=== PATIENT | female | born 1960 | race Caucasian/White ===

== ENCOUNTER 2018-06-21 14:24 | Inpatient (IN) | payer MEDICAID ==
[2018-06-21 15:05] LABS: BASO # 0.03 K/mm3 (0.0-2.0); BASO % 0.3 % (0.0-3.0); EOS # 0.1 (0.0-0.7); GRAN # 6.11 (1.4-6.5); GRAN % 62.1 % (50.0-68.0); HEMOGLOBIN 13.6 g/dL (12.0-16.0); LYMPH % 30.7 % (22.0-35.0); MEAN CELL VOLUME 86.8 fl (80.0-105.0); MEAN CORPUSCULAR HEMOGLOBIN 29.4 pg (25.0-35.0); MEAN CORPUSCULAR HGB CONC 33.8 g/dl (31.0-37.0); MEAN PLATELET VOLUME 11.5 fl (7.0-11.0); MONO # 0.6 (0.1-0.6); MONO % 5.9 % (1.0-6.0); RBC 4.63 10^6/uL (3.5-6.1); RED CELL DISTRIBUTION WIDTH 13.3 % (11.5-14.5); WHITE BLOOD COUNT 9.8 10^3/ul (4.5-11.0)
[2018-06-21 15:11] LABS: INR 1.06; PARTIAL THROMBOPLASTIN TIME 30.4 Seconds (25.1-36.5); PROTHROMBIN TIME 12.1 SECONDS (9.4-12.5)
[2018-06-21 15:16] LABS: ALB/GLOB RATIO 1.3 (1.1-1.8); ALBUMIN 4.8 g/dL (3.0-4.8); ALT/SGPT 24 U/L (7-56); AST/SGOT 24 U/L (14-36); BLOOD UREA NITROGEN 17 mg/dL (7-21); CALCIUM 9.8 mg/dL (8.4-10.5); GFR NON-AFRICAN AMERICAN > 60
[2018-06-21 15:27] LABS: B-TYPE NATRIURETIC PEPTIDE 98.8 pg/mL (0-450); TROPONIN I < 0.01 ng/mL
[2018-06-21 15:33] LABS: T4 7.5 ug/dL (5.5-11.0)
[2018-06-21 15:41] LABS: URINE BILIRUBIN NEGATIVE (NEGATIVE); URINE BLOOD NEGATIVE (NEGATIVE); URINE GLUCOSE (UA) NEGATIVE (NEGATIVE); URINE LEUKOCYTE ESTERASE SMALL Leu/uL (NEGATIVE); URINE PROTEIN 30 mg/dL (<30 mg/dL); URINE UROBILINOGEN 0.2 E.U./dL (<1 E.U./dL)
[2018-06-21 15:43] LABS: URINE APPEARANCE CLEAR (CLEAR); URINE COLOR YELLOW (YELLOW)
[2018-06-21 16:18] LABS: URINE AMORPHOUS SEDIMENT FEW; URINE BACTERIA MANY (NEG); URINE RBC 0 - 2 /hpf (0-2)
--- NOTE | 2018-06-21 16:52 | RAD ---
Date of service: 06/21/2018 HISTORY: sob COMPARISON: No prior. FINDINGS: LUNGS: No active pulmonary disease. PLEURA: No significant pleural effusion identified, no pneumothorax apparent. CARDIOVASCULAR: Normal. OSSEOUS STRUCTURES: No significant abnormalities. VISUALIZED UPPER ABDOMEN: Normal. OTHER FINDINGS: None. IMPRESSION: No active disease.
--- NOTE | 2018-06-21 17:48 | ED PDOC ---
Arrival/HPI - General Chief Complaint: High Blood Pressure Time Seen by Provider: 06/21/18 14:31 Historian: Patient, Family, Physical Therapist Clinic Director - History of Present Illness Narrative History of Present Illness (Text): 06/21/18 17:43 Patient is a 58 yo female, denies any known past medical history, presents to the Emergency Department with history of shortness of breath for "2-3 months". Patient states that she has noticed feeling short of breath intermittently, with exertion, for several months. She denies any pain or discomfort. She denies any leg pain or swelling. Denies any lightheadedness or dizziness. Denies any new medication. Son, who translates for patient, states that the patient was found to have a high blood pressure "200" as per son yesterday and "a low pulse rate" he states was in "40s". Patient currently denies symptoms while on stretcher. Past Medical History - Psychiatric Hx Substance Use: No - Surgical History Other/Comment: Fibroid removal Family/Social History Family/Social History: Unknown Family HX Smoking Status: Never Smoked Hx Alcohol Use: No Hx Substance Use: No Allergies/Home Meds Allergies/Adverse Reactions: Allergies No Known Allergies Allergy (Verified 06/21/18 14:37) Home Medications: Home Meds Medication Instructions Recorded Confirmed No Known Home Med 06/21/18 06/21/18 Review of Systems - Review of Systems Systems not reviewed;Unavailable: Language Barrier (son translates with patient's permission) Constitutional: Fatigue. absent: Fevers Eyes: absent: Vision Changes ENT: absent: Hearing Changes Respiratory: SOB. absent: Cough, Sputum, Wheezing Cardiovascular: HERRERA. absent: Palpitations, Edema, Calf Pain, Orthopnea, Syncope Gastrointestinal: absent: Abdominal Pain, Stool Changes Musculoskeletal: absent: Back Pain Skin: absent: Rash Neurological: absent: Headache, Dizziness, Focal Weakness, Speech Changes Endocrine: absent: Polyuria Hemo/Lymphatic: absent: Easy Bleeding Psychiatric: absent: Depression Physical Exam - Physical Exam Narrative Physical Exam (Text): 06/21/18 17:49 Head: Atraumatic. Normocephalic. Eyes: PERRL. EOMI. Conjunctivae are not pale. ENT: Mucous membranes are moist and intact. Oropharynx is clear and symmetric. No stridor. Neck: Supple. Full ROM. No JVD. No lymphadenopathy. No thyromegaly. Cardiovascular: Bradycardic. Systolic murmur. Distal pulses intact. Pulmonary/Chest: No evidence of respiratory distress. Clear to auscultation bilaterally. No wheezing. Abdominal: Soft and non-distended. There is no tenderness. No rebound, guarding, or rigidity. No organomegaly. Good bowel sounds. Back: No CVA tenderness. Extremities: No edema. No cyanosis. No clubbing. Full range of motion in all extremities. No calf tenderness. Skin: Skin is warm and dry. No petechiae. No purpura. Neurological: Alert, awake, and oriented. Motor and sensory exam intact. Psychiatric: Good eye contact. Normal interaction, affect, and behavior. Vital Signs Reviewed: Yes Vital Signs Temp Pulse Resp BP Pulse Ox 06/21/18 15:53 98.2 F 37 L 17 130/64 100 06/21/18 14:35 98.2 F 41 L 20 194/70 H 99 Temperature: Afebrile Blood Pressure: Hypertensive Pulse: Bradycardic Respiratory Rate: Normal Appearance: Positive for: Well-Appearing, Non-Toxic, Comfortable Pain Distress: None Mental Status: Positive for: Alert and Oriented X 3 Finger Stick Blood Glucose: 89 Medical Decision Making ED Course and Treatment: 06/21/18 17:54 Patient's history supplemented by son who is at bedside. Patient denies any acute worsening of any symptoms, but states she has had shortness of breath for "months". She denies any pain or discomfort. She denies any medications. On exam she is significantly bradycardic but DENIES SYMPTOMS. Blood pressure is elevated. Patient denies prior known history of hypertension. EKG obtained reveals complete heart block with anoop escape rhythm. Oncall cardiology was consulted. Dr. Luna covering. EKG was reviewed with machine assembler as well as exam. Patient continues to have no pain or discomfort. No dizziness. Lungs clears. Oxygen saturations 99%. Patient's case reviewed with oncall physician Dr. Medina Oropeza, who accepts patient to his service. Patient will be admitted to ICU for complete heart block, bradycardia. With serial exams she remains asymptomatic in the Emergency Department. - Lab Interpretations Lab Results: 06/21/18 14:47 06/21/18 14:47 Lab Results 06/21/18 15:25: POC Glucose (mg/dL) 89 06/21/18 14:47: Thyroxine (T4) 7.5, TSH 3rd Generation 3.69 06/21/18 14:47: Urine Color Yellow, Urine Appearance Clear, Urine pH 6.0, Ur Specific [place] 1.025, Urine Protein 30 H, Urine Glucose (UA) Negative, Urine Ketones Negative, Urine Blood Negative, Urine Nitrate Negative, Urine Bilirubin Negative, Urine Urobilinogen 0.2, Ur Leukocyte Esterase Small H, Urine RBC 0 - 2, Urine WBC 5 - 10, Ur Epithelial Cells 6 - 8, Amorphous Sediment Few, Urine Bacteria Many, Urine Other [place] 06/21/18 14:47: Sodium 142, Potassium 3.8, Chloride 103, Carbon Dioxide 29, Anion Gap 13, BUN 17, Creatinine 0.8, Est GFR ( Amer) > 60, Est GFR (Non- Af Amer) > 60, Random Glucose 99, Calcium 9.8, Magnesium 2.1, Total Bilirubin 0.6, AST 24, ALT 24, Alkaline Phosphatase 40, Lactate Dehydrogenase 500, Total Creatine Kinase 73, Troponin I < 0.01, NT-Pro-B Natriuret Pep 98.8, Total Pro tein 8.5 H, Albumin 4.8, Globulin 3.7, Albumin/Globulin Ratio 1.3 06/21/18 14:47: PT 12.1, INR 1.06, APTT 30.4 06/21/18 14:47: WBC 9.8, RBC 4.63, Hgb 13.6, Hct 40.2, MCV 86.8, MCH 29.4, MCHC 33.8, RDW 13.3, Plt Count 253, MPV 11.5 H, Gran % 62.1, Lymph % (Auto) 30.7, [place] % (Auto) 5.9, Eos % (Auto) 1.0 L, Baso % (Auto) 0.3, Gran # 6.11, Lymph # (Auto) 3.0, [place] # (Auto) 0.6, Eos # (Auto) 0.1, Baso # (Auto) 0.03 - RAD Interpretation Radiology Orders: 06/21/18 14:54 CHEST PORTABLE [RAD] Stat Cable Engineer Outside Plant: Radiologist - EKG Interpretation Interpreted by ED Physician: Yes Type: 12 lead EKG Comparison: No previous EKG avail. Disposition/Present on Arrival - Present on Arrival Any Indicators Present on Arrival: No History of DVT/PE: No History of Uncontrolled Diabetes: No Urinary Catheter: No History of Decub. Ulcer: No History Surgical Site Infection Following: None - Disposition Have Diagnosis and Disposition been Completed?: Yes Diagnosis: Complete heart block, Bradycardia Disposition: HOSPITALIZED Disposition Time: 16:00 Patient Plan: Admission, ICU Condition: CRITICAL
--- NOTE | 2018-06-22 03:10 | CON ---
DATE OF CONSULTATION: 06/21/2018 REQUESTING PHYSICIAN: Reymundo Oropeza DO CHIEF COMPLAINT: The patient presents with being tired and episodes of shortness of breath for the last 3 months. HISTORY OF PRESENT ILLNESS: The patient is a 58-year-old female that states that she for the last 3 months has felt intermittent shortness of breath especially on exertion and feeling tired. The patient has no chest pain, no fever, chills, nausea or vomiting, no abdominal pain, no diarrhea, no cough or congestion, no wheezing, no headaches, no syncopal episodes, no dizziness. The patient's son states that he took his mother's blood pressure this morning and it was extremely high, systolic being about 200 and she had a slow heart rate, so he decided to bring her to the emergency room. It is noted that the patient has a complete heart block with regular rhythm, but a rate of about 37-40. At this time, her blood pressure is stable with a systolic of about 124. PAST MEDICAL HISTORY: The patient has had fibroids removed in the past. Other than that, no known past medical history, FAMILY HISTORY: Noncontributory. SOCIAL HISTORY: No history of smoking or EtOH abuse. No drug abuse. CURRENT MEDICATIONS: Can be evaluated as per the nurse's intake form. ALLERGIES: NO KNOWN ALLERGIES. REVIEW OF SYSTEMS: CONSTITUTIONAL: All negative. HEENT: All negative. RESPIRATORY: Does have episodes of shortness of breath with exertion. CARDIOVASCULAR: Dyspnea on exertion. No palpitations. No chest pain. GASTROINTESTINAL: All negative. MUSCULOSKELETAL: All negative. : All negative. NEUROPSYCHIATRIC: Negative. ENDOCRINE: All negative. HEMATOLOGIC: All negative. IMMUNOLOGIC: All negative. INTEGRITY: All negative. PHYSICAL EXAMINATION: Her temperature is 98.2, her pulse is 37, respirations are 17, and BP is 130/64, O2 saturation is 100% on room air. Head is atraumatic, normocephalic. Eyes reactive to light. Ear, nose and throat seem to be within normal limits. Her neck is supple. No JVD. No thyroid enlargement or lymph nodes. Heart has regular rate and rhythm. Normal S1, S2. Lungs reveal good breath sounds bilaterally. Abdomen is soft, nontender. Normal bowel sounds. No organomegaly noted. Genitalia and rectal deferred. Musculoskeletal, no joint deformities. Extremities reveal no significant edema. Neurologically, she seemed to be grossly intact. LABORATORIES: As far as her laboratories are concerned, her white count is 9.8, hemoglobin is 13.6, hematocrit 40.2 with platelets of 253,000. Her sodium is 142, potassium 3.8, chloride of 103 with CO2 of 29, BUN of 17, creatinine of 0.8 and a glucose of 99. Chest x-ray reveals no infiltrates. IMPRESSION: The patient has a complete heart block and episodes of shortness of breath with exertion and feeling tired. She did present to the emergency room with elevated blood pressure, but it stabilized on its own and the patient does have the bradycardia. PLAN: We will admit the patient to the intensive care unit for close monitoring. Cardiology, Dr. Luna, has been consulted and he has reviewed the EKG as per the ER and states that at this time she does not need a temporary pacemaker. The patient will be monitored closely and we will continue to treat aggressively along with the other consultants and the primary care doctor. Raoul Mosley MD
--- NOTE | 2018-06-22 05:05 | HP ---
HISTORY OF PRESENT ILLNESS: I was called down to the emergency room to see this nice young female. She is a 58-year-old female who presents to the emergency room with history of shortness of breath for about 2-3 months. She is noticing shortness of breath intermittently with exertion for several months. No pain or chest pain or swelling of the legs. No lightheadedness, no dizziness, no falls, no syncope. The son is with her and translates for all of us; she was speaking Japanese to me and understood what I had to say. He was there to make sure everything was okay. She did have a high blood pressure about 200 and that bothers him, also a low pulse rate in the 40s but no symptoms or anything. PAST MEDICAL HISTORY: She has no real medical history. She had a fibroid removed way back when. FAMILY HISTORY: Unknown. SOCIAL HISTORY: No smoking, no drinking, no drugs. ALLERGIES: NO ALLERGIES TO ANY MEDICATIONS. MEDICATIONS: She does not take any medications. REVIEW OF SYSTEMS: No vision or hearing issues. No sore throat. She is pleasant, calm in bed, there was shortness of breath. No coughing, sputum, or wheezing. There was dyspnea on exertion. No palpitations, chest pain, orthopnea, or syncope. No nausea, vomiting, constipation, diarrhea, abdominal pain. No back pain. No skin rashes or ulcers. No headache, dizziness, focal weakness, speech changes. No problems urinating. No easy bleeding. Not depressed or anxious. PHYSICAL EXAMINATION VITAL SIGNS: She has 98.2 temperature, 37 pulse, 17 respiratory rate, 130/64 blood pressure and 100% O2 sat. The blood pressure when she came in was 194/70. HEENT: The head is atraumatic and normocephalic. Extraocular muscles are intact. Pupils reactive to light and accommodation. Throat is moist. NECK: Supple. Full range of motion of the neck. No JVD, no lymphadenopathy. Palpable thyroid appreciated. CARDIOPULMONARY: Heart is bradycardic, systolic murmur. LUNGS: Decreased breath sounds bilaterally but clear to auscultation. No wheezes, no rhonchi, no rales. ABDOMEN: Soft and nontender with positive bowel sounds. No guarding, no rebound, no CVA tenderness. EXTREMITIES: Have no edema, full range of motion. SKIN: Warm and dry. No apparent rashes or ulcers. NEUROLOGIC: She is alert and oriented x3, calm, is looking at me, good eye contact. No anxiety or depression. Thyroid midline and palpable appreciable lymphadenopathy. LABORATORY DATA: She had a bunch of tests done. Chest x-ray was clear. She has a urine which was positive for many bacteria. She has a urinary tract infection. Sodium 142, potassium is 3.8, BUN 70, creatinine 0.8, chloride and sugar is 89. Calcium is 9.8, total bili is 0.6, magnesium 2.1, AST is 24, ALT is 24, alk phos is 40. Lactate dehydrogenase is 500, total creatine kinase is 73. Troponin I is less than 0.01. BNP of 98.8, total protein is 8.5, albumin is 4.8, globulin is 3.7. TSH is 3.69. INR is 1.06. White count is 9.8, hemoglobin 13.6, hematocrit 40.2, platelets of 253. Awaiting further cultures to come back on the urine. I will put her on Rocephin 1 g IV q. 24. till her cultures come back; she will have a diet. She will have a consult with Cardiology, Dr. Luna for the heart block. She will be on telemetry in the Intensive Care Unit, to watch her pulse right now, it is 34 on the monitor shortness of breath. Reymundo Oropeza DO MTDD
[2018-06-22 06:06] LABS: HEMOGLOBIN 12.2 g/dL (12.0-16.0); RBC 4.31 10^6/uL (3.5-6.1); WHITE BLOOD COUNT 8.5 10^3/ul (4.5-11.0)
[2018-06-22 06:07] LABS: MEAN CELL VOLUME 87.9 fl (80.0-105.0); MEAN CORPUSCULAR HEMOGLOBIN 28.3 pg (25.0-35.0); MEAN CORPUSCULAR HGB CONC 32.2 g/dl (31.0-37.0); MEAN PLATELET VOLUME 11.9 fl (7.0-11.0); RED CELL DISTRIBUTION WIDTH 13.3 % (11.5-14.5)
[2018-06-22 06:20] LABS: ALB/GLOB RATIO 1.2 (1.1-1.8); ALT/SGPT 23 U/L (7-56); AST/SGOT 20 U/L (14-36); BLOOD UREA NITROGEN 18 mg/dL (7-21); CALCIUM 9.2 mg/dL (8.4-10.5); GFR NON-AFRICAN AMERICAN > 60
--- NOTE | 2018-06-22 08:13 | CP.CCUPN ---
<Jeison Dejesus - Last Filed: 06/22/18 09:52> CCU Subjective - Physician Review Subjective (Free Text): Jeison Dejesus DO, PGY-1 ICU Progress Note for Dr. Alicea Patient was seen and examined at bedside this AM. She states that she feels fine and is no longer short of breath. She states that she only gets short of breath with exertion. She denies dizziness, [place], changes in vision, or nausea/vomiting. CCU Objective - Vital Signs / Intake & Output Vital Signs (Last 4 hours): Vital Signs Pulse 06/22/18 06:00 32 L Intake and Output (Last 8hrs): Intake & Output 06/21/18 06/22/18 06/22/18 22:59 06:59 14:59 Output Total 300 Balance -300 Weight 158 lb Output: Urine 300 Urine, Voided 300 - Physical Exam Head: Positive for: Atraumatic, Normocephalic Pupils: Positive for: PERRL Extroacular Muscles: Positive for: EOMI Conjunctiva: Positive for: Normal Mouth: Positive for: Moist Mucous Membranes Neck: Positive for: Normal Range of Motion. Negative for: JVD Respiratory/Chest: Positive for: Clear to Auscultation. Negative for: Accessory Muscle Use, Wheezes, Rales, Rhonchi Cardiovascular: Positive for: Normal S1, S2, Other (bradycardic at rate of 32). Negative for: Murmurs, Rub, Gallop Abdomen: Negative for: Tenderness, Distention, Guarding Back: Positive for: Normal Inspection Upper Extremity: Positive for: Normal Inspection. Negative for: Cyanosis Lower Extremity: Positive for: Normal Inspection. Negative for: Edema Neurological: Positive for: GCS=15, Speech Normal Skin: Positive for: Warm, Dry, Normal Color Psychiatric: Positive for: Alert, Oriented x 3 - Patient Studies Lab Studies: Lab Studies 06/22/18 06/22/18 06/21/18 Range/Units 05:20 05:20 15:25 WBC 8.5 (4.5-11.0) 10^3/ul RBC 4.31 (3.5-6.1) 10^6/uL Hgb 12.2 (12.0-16.0) g/dL Hct 37.9 (36.0-48.0) % MCV 87.9 (80.0-105.0) fl MCH 28.3 (25.0-35.0) pg MCHC 32.2 (31.0-37.0) g/dl RDW 13.3 (11.5-14.5) % Plt Count 219 (120.0-450.0) 10^3/uL MPV 11.9 H (7.0-11.0) fl Gran % (50.0-68.0) % Lymph % (Auto) (22.0-35.0) % Ness % (Auto) (1.0-6.0) % Eos % (Auto) (1.5-5.0) % Baso % (Auto) (0.0-3.0) % Gran # (1.4-6.5) Lymph # (Auto) (1.2-3.4) Ness # (Auto) (0.1-0.6) Eos # (Auto) (0.0-0.7) Baso # (Auto) (0.0-2.0) K/mm3 PT (9.4-12.5) SECONDS INR APTT (25.1-36.5) Seconds Sodium 138 (132-148) mmol/L Potassium 4.5 (3.6-5.0) mmol/L Chloride 105 (98-107) mmol/L Carbon Dioxide 27 (21-33) mmol/L Anion Gap 11 (10-20) BUN 18 (7-21) mg/dL Creatinine 0.8 (0.7-1.2) mg/dl Est GFR ( Amer) > 60 Est GFR (Non-Af Amer) > 60 POC Glucose (mg/dL) 89 (65-110) mg/dL Random Glucose 116 H (70-110) mg/dL Calcium 9.2 (8.4-10.5) mg/dL Magnesium (1.7-2.2) mg/dL Total Bilirubin 0.6 (0.2-1.3) mg/dL AST 20 (14-36) U/L ALT 23 (7-56) U/L Alkaline Phosphatase 39 (38-126) U/L Lactate Dehydrogenase (333-699) U/L Total Creatine Kinase (35-230) U/L Troponin I ng/mL NT-Pro-B Natriuret Pep (0-450) pg/mL Total Protein 7.3 (5.8-8.3) g/dL Albumin 4.0 (3.0-4.8) g/dL Globulin 3.3 gm/dL Albumin/Globulin Ratio 1.2 (1.1-1.8) Thyroxine (T4) (5.5-11.0) ug/dL TSH 3rd Generation (0.46-4.68) mIU/mL Urine Color (YELLOW) Urine Appearance (CLEAR) Urine pH (4.7-8.0) Ur Specific [place] (1.005-1.035) Urine Protein (<30 mg/dL) mg/dL Urine Glucose (UA) (NEGATIVE) mg/dL Urine Ketones (NEGATIVE) mg/dL Urine Blood (NEGATIVE) Urine Nitrate (NEGATIVE) Urine Bilirubin (NEGATIVE) Urine Urobilinogen (<1 E.U./dL) E.U./dL Ur Leukocyte Esterase (NEGATIVE) Yamilex/uL Urine RBC (0-2) /hpf Urine WBC (0-6) /hpf Ur Epithelial Cells (0-5) /hpf Amorphous Sediment Urine Bacteria (NEG) Urine Other 06/21/18 06/21/18 06/21/18 Range/Units 14:47 14:47 14:47 WBC (4.5-11.0) 10^3/ul RBC (3.5-6.1) 10^6/uL Hgb (12.0-16.0) g/dL Hct (36.0-48.0) % MCV (80.0-105.0) fl MCH (25.0-35.0) pg MCHC (31.0-37.0) g/dl RDW (11.5-14.5) % Plt Count (120.0-450.0) 10^3/uL MPV (7.0-11.0) fl Gran % (50.0-68.0) % Lymph % (Auto) (22.0-35.0) % Ness % (Auto) (1.0-6.0) % Eos % (Auto) (1.5-5.0) % Baso % (Auto) (0.0-3.0) % Gran # (1.4-6.5) Lymph # (Auto) (1.2-3.4) Ness # (Auto) (0.1-0.6) Eos # (Auto) (0.0-0.7) Baso # (Auto) (0.0-2.0) K/mm3 PT (9.4-12.5) SECONDS INR APTT (25.1-36.5) Seconds Sodium 142 (132-148) mmol/L Potassium 3.8 (3.6-5.0) mmol/L Chloride 103 (98-107) mmol/L Carbon Dioxide 29 (21-33) mmol/L Anion Gap 13 (10-20) BUN 17 (7-21) mg/dL Creatinine 0.8 (0.7-1.2) mg/dl Est GFR ( Amer) > 60 Est GFR (Non-Af Amer) > 60 POC Glucose (mg/dL) (65-110) mg/dL Random Glucose 99 (70-110) mg/dL Calcium 9.8 (8.4-10.5) mg/dL Magnesium 2.1 (1.7-2.2) mg/dL Total Bilirubin 0.6 (0.2-1.3) mg/dL AST 24 (14-36) U/L ALT 24 (7-56) U/L Alkaline Phosphatase 40 (38-126) U/L Lactate Dehydrogenase 500 (333-699) U/L Total Creatine Kinase 73 (35-230) U/L Troponin I < 0.01 ng/mL NT-Pro-B Natriuret Pep 98.8 (0-450) pg/mL Total Protein 8.5 H (5.8-8.3) g/dL Albumin 4.8 (3.0-4.8) g/dL Globulin 3.7 gm/dL Albumin/Globulin Ratio 1.3 (1.1-1.8) Thyroxine (T4) 7.5 (5.5-11.0) ug/dL TSH 3rd Generation 3.69 (0.46-4.68) mIU/mL Urine Color Yellow (YELLOW) Urine Appearance Clear (CLEAR) Urine pH 6.0 (4.7-8.0) Ur Specific [place] 1.025 (1.005-1.035) Urine Protein 30 H (<30 mg/dL) mg/dL Urine Glucose (UA) Negative (NEGATIVE) mg/dL Urine Ketones Negative (NEGATIVE) mg/dL Urine Blood Negative (NEGATIVE) Urine Nitrate Negative (NEGATIVE) Urine Bilirubin Negative (NEGATIVE) Urine Urobilinogen 0.2 (<1 E.U./dL) E.U./dL Ur Leukocyte Esterase Small H (NEGATIVE) Yamilex/uL Urine RBC 0 - 2 (0-2) /hpf Urine WBC 5 - 10 (0-6) /hpf Ur Epithelial Cells 6 - 8 (0-5) /hpf Amorphous Sediment Few Urine Bacteria Many (NEG) Urine Other Uyeast 06/21/18 06/21/18 Range/Units 14:47 14:47 WBC 9.8 (4.5-11.0) 10^3/ul RBC 4.63 (3.5-6.1) 10^6/uL Hgb 13.6 (12.0-16.0) g/dL Hct 40.2 (36.0-48.0) % MCV 86.8 (80.0-105.0) fl MCH 29.4 (25.0-35.0) pg MCHC 33.8 (31.0-37.0) g/dl RDW 13.3 (11.5-14.5) % Plt Count 253 (120.0-450.0) 10^3/uL MPV 11.5 H (7.0-11.0) fl Gran % 62.1 (50.0-68.0) % Lymph % (Auto) 30.7 (22.0-35.0) % Ness % (Auto) 5.9 (1.0-6.0) % Eos % (Auto) 1.0 L (1.5-5.0) % Baso % (Auto) 0.3 (0.0-3.0) % Gran # 6.11 (1.4-6.5) Lymph # (Auto) 3.0 (1.2-3.4) Ness # (Auto) 0.6 (0.1-0.6) Eos # (Auto) 0.1 (0.0-0.7) Baso # (Auto) 0.03 (0.0-2.0) K/mm3 PT 12.1 (9.4-12.5) SECONDS INR 1.06 APTT 30.4 (25.1-36.5) Seconds Sodium (132-148) mmol/L Potassium (3.6-5.0) mmol/L Chloride (98-107) mmol/L Carbon Dioxide (21-33) mmol/L Anion Gap (10-20) BUN (7-21) mg/dL Creatinine (0.7-1.2) mg/dl Est GFR ( Amer) Est GFR (Non-Af Amer) POC Glucose (mg/dL) (65-110) mg/dL Random Glucose (70-110) mg/dL Calcium (8.4-10.5) mg/dL Magnesium (1.7-2.2) mg/dL Total Bilirubin (0.2-1.3) mg/dL AST (14-36) U/L ALT (7-56) U/L Alkaline Phosphatase (38-126) U/L Lactate Dehydrogenase (333-699) U/L Total Creatine Kinase (35-230) U/L Troponin I ng/mL NT-Pro-B Natriuret Pep (0-450) pg/mL Total Protein (5.8-8.3) g/dL Albumin (3.0-4.8) g/dL Globulin gm/dL Albumin/Globulin Ratio (1.1-1.8) Thyroxine (T4) (5.5-11.0) ug/dL TSH 3rd Generation (0.46-4.68) mIU/mL Urine Color (YELLOW) Urine Appearance (CLEAR) Urine pH (4.7-8.0) Ur Specific [place] (1.005-1.035) Urine Protein (<30 mg/dL) mg/dL Urine Glucose (UA) (NEGATIVE) mg/dL Urine Ketones (NEGATIVE) mg/dL Urine Blood (NEGATIVE) Urine Nitrate (NEGATIVE) Urine Bilirubin (NEGATIVE) Urine Urobilinogen (<1 E.U./dL) E.U./dL Ur Leukocyte Esterase (NEGATIVE) Yamilex/uL Urine RBC (0-2) /hpf Urine WBC (0-6) /hpf Ur Epithelial Cells (0-5) /hpf Amorphous Sediment Urine Bacteria (NEG) Urine Other Laboratory Results - last 24 hr 06/21/18 06/21/18 06/21/18 14:47 14:47 14:47 WBC 9.8 RBC 4.63 Hgb 13.6 Hct 40.2 MCV 86.8 MCH 29.4 MCHC 33.8 RDW 13.3 Plt Count 253 MPV 11.5 H Gran % 62.1 Lymph % (Auto) 30.7 Ness % (Auto) 5.9 Eos % (Auto) 1.0 L Baso % (Auto) 0.3 Gran # 6.11 Lymph # (Auto) 3.0 Ness # (Auto) 0.6 Eos # (Auto) 0.1 Baso # (Auto) 0.03 PT 12.1 INR 1.06 APTT 30.4 Sodium 142 Potassium 3.8 Chloride 103 Carbon Dioxide 29 Anion Gap 13 BUN 17 Creatinine 0.8 Est GFR ( Amer) > 60 Est GFR (Non-Af Amer) > 60 POC Glucose (mg/dL) Random Glucose 99 Calcium 9.8 Magnesium 2.1 Total Bilirubin 0.6 AST 24 ALT 24 Alkaline Phosphatase 40 Lactate Dehydrogenase 500 Total Creatine Kinase 73 Troponin I < 0.01 NT-Pro-B Natriuret Pep 98.8 Total Protein 8.5 H Albumin 4.8 Globulin 3.7 Albumin/Globulin Ratio 1.3 Thyroxine (T4) TSH 3rd Generation Urine Color Urine Appearance Urine pH Ur Specific [place] Urine Protein Urine Glucose (UA) Urine Ketones Urine Blood Urine Nitrate Urine Bilirubin Urine Urobilinogen Ur Leukocyte Esterase Urine RBC Urine WBC Ur Epithelial Cells Amorphous Sediment Urine Bacteria Urine Other 06/21/18 06/21/18 06/21/18 14:47 14:47 15:25 WBC RBC Hgb Hct MCV MCH MCHC RDW Plt Count MPV Gran % Lymph % (Auto) Ness % (Auto) Eos % (Auto) Baso % (Auto) Gran # Lymph # (Auto) Ness # (Auto) Eos # (Auto) Baso # (Auto) PT INR APTT Sodium Potassium Chloride Carbon Dioxide Anion Gap BUN Creatinine Est GFR ( Amer) Est GFR (Non-Af Amer) POC Glucose (mg/dL) 89 Random Glucose Calcium Magnesium Total Bilirubin AST ALT Alkaline Phosphatase Lactate Dehydrogenase Total Creatine Kinase Troponin I NT-Pro-B Natriuret Pep Total Protein Albumin Globulin Albumin/Globulin Ratio Thyroxine (T4) 7.5 TSH 3rd Generation 3.69 Urine Color Yellow Urine Appearance Clear Urine pH 6.0 Ur Specific [place] 1.025 Urine Protein 30 H Urine Glucose (UA) Negative Urine Ketones Negative Urine Blood Negative Urine Nitrate Negative Urine Bilirubin Negative Urine Urobilinogen 0.2 Ur Leukocyte Esterase Small H Urine RBC 0 - 2 Urine WBC 5 - 10 Ur Epithelial Cells 6 - 8 Amorphous Sediment Few Urine Bacteria Many Urine Other Uyeast 06/22/18 06/22/18 05:20 05:20 WBC 8.5 RBC 4.31 Hgb 12.2 Hct 37.9 MCV 87.9 MCH 28.3 MCHC 32.2 RDW 13.3 Plt Count 219 MPV 11.9 H Gran % Lymph % (Auto) Ness % (Auto) Eos % (Auto) Baso % (Auto) Gran # Lymph # (Auto) Ness # (Auto) Eos # (Auto) Baso # (Auto) PT INR APTT Sodium 138 Potassium 4.5 Chloride 105 Carbon Dioxide 27 Anion Gap 11 BUN 18 Creatinine 0.8 Est GFR ( Amer) > 60 Est GFR (Non-Af Amer) > 60 POC Glucose (mg/dL) Random Glucose 116 H Calcium 9.2 Magnesium Total Bilirubin 0.6 AST 20 ALT 23 Alkaline Phosphatase 39 Lactate Dehydrogenase Total Creatine Kinase Troponin I NT-Pro-B Natriuret Pep Total Protein 7.3 Albumin 4.0 Globulin 3.3 Albumin/Globulin Ratio 1.2 Thyroxine (T4) TSH 3rd Generation Urine Color Urine Appearance Urine pH Ur Specific [place] Urine Protein Urine Glucose (UA) Urine Ketones Urine Blood Urine Nitrate Urine Bilirubin Urine Urobilinogen Ur Leukocyte Esterase Urine RBC Urine WBC Ur Epithelial Cells Amorphous Sediment Urine Bacteria Urine Other EKG/Cardiology Studies: Cardiology / EKG Studies 06/21/18 14:54 EKG [ELECTROCARDIOGRAM] Stat Comment: Reason For Exam: weakness 06/21/18 16:10 EKG [ELECTROCARDIOGRAM] Stat Comment: Reason For Exam: 2nd ekg 06/22/18 EKG [ELECTROCARDIOGRAM] Routine Comment: Reason For Exam: 3rd degree block? Fingerstick Blood Sugar Results: 89 Review of Systems - Constitutional Constitutional: absent: Fever, Chills - EENT Eyes: absent: Blurred Vision, Change in Vision - Cardiovascular Cardiovascular: absent: Chest Pain, Diaphoresis, Dyspnea - Respiratory Respiratory: Dyspnea on Exertion. 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 Plan: Neuro: AAOx3, no FND, moving extremities past midline Cardio: Remains bradycardic at low 30s Has symptoms of dyspnea on exertion Per Dr. 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 CTA B/L No dyspnea at rest only with exertion Maintain O2 saturation>95% O2 NC PRN GI: Tolerating HHD without nausea/vomiting Protonix for GI PPX /Nephro: BUN/Cr stable Monitor UOP Replete electrolytes as needed Maintain euvolemia Endocrinology: Maintain euglycemia Heme/Onc: H/H stable at 12.2/37.9 No signs of HD compromise Continue monitoring H/H ID: Afebrile, no leukocytosis On rocephin for 10-15 WBC, leukocyte esterase in urine DVT/GI PPX: Lovenox and protonix Case and plan reviewed and discussed with my attending Dr. Deanne Dejesus, DO IM Resident PGY-1 <Tramaine Alicea - Last Filed: 06/22/18 10:50> CCU Objective - Vital Signs / Intake & Output Vital Signs (Last 4 hours): Vital Signs Temp 06/22/18 08:00 98.5 F Intake and Output (Last 8hrs): Intake & Output 06/21/18 06/22/18 06/22/18 22:59 06:59 14:59 Intake Total 240 Output Total 300 50 Balance -300 190 Weight 158 lb Intake: Oral 240 Output: Urine 300 50 Urine, Voided 300 50 - Medications Active Medications: Active Medications Generic Name Dose Route Start Last Admin Trade Name Freq PRN Reason Stop Dose Admin Enoxaparin Sodium 40 mg 06/22/18 10:00 06/22/18 10:11 Lovenox SC 40 mg DAILY MARY Administration Protocol Ceftriaxone Sodium 1 gm in 100 mls @ 100 mls/hr 06/22/18 10:00 06/22/18 10:11 Rocephin 1 Gram Ivpb IVPB 100 mls/hr DAILY MARY Administration Protocol Pantoprazole Sodium 40 mg 06/23/18 06:00 Protonix Ec Tab PO 0600 MARY - Patient Studies Lab Studies: Microbiology Studies 06/21/18 14:47 Urine Culture - Final Urine No Growth (<1,000 CFU/ML) Lab Studies 06/22/18 06/22/18 06/21/18 Range/Units 05:20 05:20 15:25 WBC 8.5 (4.5-11.0) 10^3/ul RBC 4.31 (3.5-6.1) 10^6/uL Hgb 12.2 (12.0-16.0) g/dL Hct 37.9 (36.0-48.0) % MCV 87.9 (80.0-105.0) fl MCH 28.3 (25.0-35.0) pg MCHC 32.2 (31.0-37.0) g/dl RDW 13.3 (11.5-14.5) % Plt Count 219 (120.0-450.0) 10^3/uL MPV 11.9 H (7.0-11.0) fl Gran % (50.0-68.0) % Lymph % (Auto) (22.0-35.0) % Ness % (Auto) (1.0-6.0) % Eos % (Auto) (1.5-5.0) % Baso % (Auto) (0.0-3.0) % Gran # (1.4-6.5) Lymph # (Auto) (1.2-3.4) Ness # (Auto) (0.1-0.6) Eos # (Auto) (0.0-0.7) Baso # (Auto) (0.0-2.0) K/mm3 PT (9.4-12.5) SECONDS INR APTT (25.1-36.5) Seconds Sodium 138 (132-148) mmol/L Potassium 4.5 (3.6-5.0) mmol/L Chloride 105 (98-107) mmol/L Carbon Dioxide 27 (21-33) mmol/L Anion Gap 11 (10-20) BUN 18 (7-21) mg/dL Creatinine 0.8 (0.7-1.2) mg/dl Est GFR ( Amer) > 60 Est GFR (Non-Af Amer) > 60 POC Glucose (mg/dL) 89 (65-110) mg/dL Random Glucose 116 H (70-110) mg/dL Calcium 9.2 (8.4-10.5) mg/dL Magnesium (1.7-2.2) mg/dL Total Bilirubin 0.6 (0.2-1.3) mg/dL AST 20 (14-36) U/L ALT 23 (7-56) U/L Alkaline Phosphatase 39 (38-126) U/L Lactate Dehydrogenase (333-699) U/L Total Creatine Kinase (35-230) U/L Troponin I ng/mL NT-Pro-B Natriuret Pep (0-450) pg/mL Total Protein 7.3 (5.8-8.3) g/dL Albumin 4.0 (3.0-4.8) g/dL Globulin 3.3 gm/dL Albumin/Globulin Ratio 1.2 (1.1-1.8) Thyroxine (T4) (5.5-11.0) ug/dL TSH 3rd Generation (0.46-4.68) mIU/mL Urine Color (YELLOW) Urine Appearance (CLEAR) Urine pH (4.7-8.0) Ur Specific [place] (1.005-1.035) Urine Protein (<30 mg/dL) mg/dL Urine Glucose (UA) (NEGATIVE) mg/dL Urine Ketones (NEGATIVE) mg/dL Urine Blood (NEGATIVE) Urine Nitrate (NEGATIVE) Urine Bilirubin (NEGATIVE) Urine Urobilinogen (<1 E.U./dL) E.U./dL Ur Leukocyte Esterase (NEGATIVE) Yamilex/uL Urine RBC (0-2) /hpf Urine WBC (0-6) /hpf Ur Epithelial Cells (0-5) /hpf Amorphous Sediment Urine Bacteria (NEG) Urine Other 06/21/18 06/21/18 06/21/18 Range/Units 14:47 14:47 14:47 WBC (4.5-11.0) 10^3/ul RBC (3.5-6.1) 10^6/uL Hgb (12.0-16.0) g/dL Hct (36.0-48.0) % MCV (80.0-105.0) fl MCH (25.0-35.0) pg MCHC (31.0-37.0) g/dl RDW (11.5-14.5) % Plt Count (120.0-450.0) 10^3/uL MPV (7.0-11.0) fl Gran % (50.0-68.0) % Lymph % (Auto) (22.0-35.0) % Ness % (Auto) (1.0-6.0) % Eos % (Auto) (1.5-5.0) % Baso % (Auto) (0.0-3.0) % Gran # (1.4-6.5) Lymph # (Auto) (1.2-3.4) Ness # (Auto) (0.1-0.6) Eos # (Auto) (0.0-0.7) Baso # (Auto) (0.0-2.0) K/mm3 PT (9.4-12.5) SECONDS INR APTT (25.1-36.5) Seconds Sodium 142 (132-148) mmol/L Potassium 3.8 (3.6-5.0) mmol/L Chloride 103 (98-107) mmol/L Carbon Dioxide 29 (21-33) mmol/L Anion Gap 13 (10-20) BUN 17 (7-21) mg/dL Creatinine 0.8 (0.7-1.2) mg/dl Est GFR ( Amer) > 60 Est GFR (Non-Af Amer) > 60 POC Glucose (mg/dL) (65-110) mg/dL Random Glucose 99 (70-110) mg/dL Calcium 9.8 (8.4-10.5) mg/dL Magnesium 2.1 (1.7-2.2) mg/dL Total Bilirubin 0.6 (0.2-1.3) mg/dL AST 24 (14-36) U/L ALT 24 (7-56) U/L Alkaline Phosphatase 40 (38-126) U/L Lactate Dehydrogenase 500 (333-699) U/L Total Creatine Kinase 73 (35-230) U/L Troponin I < 0.01 ng/mL NT-Pro-B Natriuret Pep 98.8 (0-450) pg/mL Total Protein 8.5 H (5.8-8.3) g/dL Albumin 4.8 (3.0-4.8) g/dL Globulin 3.7 gm/dL Albumin/Globulin Ratio 1.3 (1.1-1.8) Thyroxine (T4) 7.5 (5.5-11.0) ug/dL TSH 3rd Generation 3.69 (0.46-4.68) mIU/mL Urine Color Yellow (YELLOW) Urine Appearance Clear (CLEAR) Urine pH 6.0 (4.7-8.0) Ur Specific [place] 1.025 (1.005-1.035) Urine Protein 30 H (<30 mg/dL) mg/dL Urine Glucose (UA) Negative (NEGATIVE) mg/dL Urine Ketones Negative (NEGATIVE) mg/dL Urine Blood Negative (NEGATIVE) Urine Nitrate Negative (NEGATIVE) Urine Bilirubin Negative (NEGATIVE) Urine Urobilinogen 0.2 (<1 E.U./dL) E.U./dL Ur Leukocyte Esterase Small H (NEGATIVE) Yamilex/uL Urine RBC 0 - 2 (0-2) /hpf Urine WBC 5 - 10 (0-6) /hpf Ur Epithelial Cells 6 - 8 (0-5) /hpf Amorphous Sediment Few Urine Bacteria Many (NEG) Urine Other Uyeast 06/21/18 06/21/18 Range/Units 14:47 14:47 WBC 9.8 (4.5-11.0) 10^3/ul RBC 4.63 (3.5-6.1) 10^6/uL Hgb 13.6 (12.0-16.0) g/dL Hct 40.2 (36.0-48.0) % MCV 86.8 (80.0-105.0) fl MCH 29.4 (25.0-35.0) pg MCHC 33.8 (31.0-37.0) g/dl RDW 13.3 (11.5-14.5) % Plt Count 253 (120.0-450.0) 10^3/uL MPV 11.5 H (7.0-11.0) fl Gran % 62.1 (50.0-68.0) % Lymph % (Auto) 30.7 (22.0-35.0) % Ness % (Auto) 5.9 (1.0-6.0) % Eos % (Auto) 1.0 L (1.5-5.0) % Baso % (Auto) 0.3 (0.0-3.0) % Gran # 6.11 (1.4-6.5) Lymph # (Auto) 3.0 (1.2-3.4) Ness # (Auto) 0.6 (0.1-0.6) Eos # (Auto) 0.1 (0.0-0.7) Baso # (Auto) 0.03 (0.0-2.0) K/mm3 PT 12.1 (9.4-12.5) SECONDS INR 1.06 APTT 30.4 (25.1-36.5) Seconds Sodium (132-148) mmol/L Potassium (3.6-5.0) mmol/L Chloride (98-107) mmol/L Carbon Dioxide (21-33) mmol/L Anion Gap (10-20) BUN (7-21) mg/dL Creatinine (0.7-1.2) mg/dl Est GFR ( Amer) Est GFR (Non-Af Amer) POC Glucose (mg/dL) (65-110) mg/dL Random Glucose (70-110) mg/dL Calcium (8.4-10.5) mg/dL Magnesium (1.7-2.2) mg/dL Total Bilirubin (0.2-1.3) mg/dL AST (14-36) U/L ALT (7-56) U/L Alkaline Phosphatase (38-126) U/L Lactate Dehydrogenase (333-699) U/L Total Creatine Kinase (35-230) U/L Troponin I ng/mL NT-Pro-B Natriuret Pep (0-450) pg/mL Total Protein (5.8-8.3) g/dL Albumin (3.0-4.8) g/dL Globulin gm/dL Albumin/Globulin Ratio (1.1-1.8) Thyroxine (T4) (5.5-11.0) ug/dL TSH 3rd Generation (0.46-4.68) mIU/mL Urine Color (YELLOW) Urine Appearance (CLEAR) Urine pH (4.7-8.0) Ur Specific [place] (1.005-1.035) Urine Protein (<30 mg/dL) mg/dL Urine Glucose (UA) (NEGATIVE) mg/dL Urine Ketones (NEGATIVE) mg/dL Urine Blood (NEGATIVE) Urine Nitrate (NEGATIVE) Urine Bilirubin (NEGATIVE) Urine Urobilinogen (<1 E.U./dL) E.U./dL Ur Leukocyte Esterase (NEGATIVE) Yamilex/uL Urine RBC (0-2) /hpf Urine WBC (0-6) /hpf Ur Epithelial Cells (0-5) /hpf Amorphous Sediment Urine Bacteria (NEG) Urine Other Laboratory Results - last 24 hr 06/21/18 06/21/18 06/21/18 14:47 14:47 14:47 WBC 9.8 RBC 4.63 Hgb 13.6 Hct 40.2 MCV 86.8 MCH 29.4 MCHC 33.8 RDW 13.3 Plt Count 253 MPV 11.5 H Gran % 62.1 Lymph % (Auto) 30.7 Ness % (Auto) 5.9 Eos % (Auto) 1.0 L Baso % (Auto) 0.3 Gran # 6.11 Lymph # (Auto) 3.0 Ness # (Auto) 0.6 Eos # (Auto) 0.1 Baso # (Auto) 0.03 PT 12.1 INR 1.06 APTT 30.4 Sodium 142 Potassium 3.8 Chloride 103 Carbon Dioxide 29 Anion Gap 13 BUN 17 Creatinine 0.8 Est GFR ( Amer) > 60 Est GFR (Non-Af Amer) > 60 POC Glucose (mg/dL) Random Glucose 99 Calcium 9.8 Magnesium 2.1 Total Bilirubin 0.6 AST 24 ALT 24 Alkaline Phosphatase 40 Lactate Dehydrogenase 500 Total Creatine Kinase 73 Troponin I < 0.01 NT-Pro-B Natriuret Pep 98.8 Total Protein 8.5 H Albumin 4.8 Globulin 3.7 Albumin/Globulin Ratio 1.3 Thyroxine (T4) TSH 3rd Generation Urine Color Urine Appearance Urine pH Ur Specific [place] Urine Protein Urine Glucose (UA) Urine Ketones Urine Blood Urine Nitrate Urine Bilirubin Urine Urobilinogen Ur Leukocyte Esterase Urine RBC Urine WBC Ur Epithelial Cells Amorphous Sediment Urine Bacteria Urine Other 06/21/18 06/21/18 06/21/18 14:47 14:47 15:25 WBC RBC Hgb Hct MCV MCH MCHC RDW Plt Count MPV Gran % Lymph % (Auto) Ness % (Auto) Eos % (Auto) Baso % (Auto) Gran # Lymph # (Auto) Ness # (Auto) Eos # (Auto) Baso # (Auto) PT INR APTT Sodium Potassium Chloride Carbon Dioxide Anion Gap BUN Creatinine Est GFR ( Amer) Est GFR (Non-Af Amer) POC Glucose (mg/dL) 89 Random Glucose Calcium Magnesium Total Bilirubin AST ALT Alkaline Phosphatase Lactate Dehydrogenase Total Creatine Kinase Troponin I NT-Pro-B Natriuret Pep Total Protein Albumin Globulin Albumin/Globulin Ratio Thyroxine (T4) 7.5 TSH 3rd Generation 3.69 Urine Color Yellow Urine Appearance Clear Urine pH 6.0 Ur Specific [place] 1.025 Urine Protein 30 H Urine Glucose (UA) Negative Urine Ketones Negative Urine Blood Negative Urine Nitrate Negative Urine Bilirubin Negative Urine Urobilinogen 0.2 Ur Leukocyte Esterase Small H Urine RBC 0 - 2 Urine WBC 5 - 10 Ur Epithelial Cells 6 - 8 Amorphous Sediment Few Urine Bacteria Many Urine Other Uyeast 06/22/18 06/22/18 05:20 05:20 WBC 8.5 RBC 4.31 Hgb 12.2 Hct 37.9 MCV 87.9 MCH 28.3 MCHC 32.2 RDW 13.3 Plt Count 219 MPV 11.9 H Gran % Lymph % (Auto) Ness % (Auto) Eos % (Auto) Baso % (Auto) Gran # Lymph # (Auto) Ness # (Auto) Eos # (Auto) Baso # (Auto) PT INR APTT Sodium 138 Potassium 4.5 Chloride 105 Carbon Dioxide 27 Anion Gap 11 BUN 18 Creatinine 0.8 Est GFR ( Amer) > 60 Est GFR (Non-Af Amer) > 60 POC Glucose (mg/dL) Random Glucose 116 H Calcium 9.2 Magnesium Total Bilirubin 0.6 AST 20 ALT 23 Alkaline Phosphatase 39 Lactate Dehydrogenase Total Creatine Kinase Troponin I NT-Pro-B Natriuret Pep Total Protein 7.3 Albumin 4.0 Globulin 3.3 Albumin/Globulin Ratio 1.2 Thyroxine (T4) TSH 3rd Generation Urine Color Urine Appearance Urine pH Ur Specific [place] Urine Protein Urine Glucose (UA) Urine Ketones Urine Blood Urine Nitrate Urine Bilirubin Urine Urobilinogen Ur Leukocyte Esterase Urine RBC Urine WBC Ur Epithelial Cells Amorphous Sediment Urine Bacteria Urine Other EKG/Cardiology Studies: Cardiology / EKG Studies 06/21/18 14:54 EKG [ELECTROCARDIOGRAM] Stat Comment: Reason For Exam: weakness 06/21/18 16:10 EKG [ELECTROCARDIOGRAM] Stat Comment: Reason For Exam: 2nd ekg 06/22/18 EKG [ELECTROCARDIOGRAM] Routine Comment: Reason For Exam: 3rd degree block? Critical Care Progress Note - Nutrition Nutrition: Nutrition Category Date Time Status Heart Healthy Diet [DIET] Diets 06/21/18 Dinner Active Assessment/Plan - Assessment and Plan (Free Text) Plan: Patient seen and examined on rounds, agree with note with following additions/exceptions: Patient is 58yo female without sig PMHx, presents from home with SOB, and complete HB. Cardiology consulted. Patient is also has UTI on Rocephin. UTI Bradycardia Complete heart block Recommend: - supp o2 as needed, duonebs PRN - NO ID issues - BP control - IVF - NPO - cardiology follow up - PPM placement - GI ppx - DVT ppx - Monitor in CCU
--- NOTE | 2018-06-22 09:40 | PN ---
DATE: 06/22/2018 SUBJECTIVE: I saw her in the Intensive Care Unit. She is resting comfortably in bed. She has oxygen on. PHYSICAL EXAMINATION: VITAL SIGNS: Her pulse at this time is 33. She has a 98.5 temp, 32 pulse, 17 respiratory rate, 100% O2 sat, she has a 150/65 blood pressure. HEENT: Head is atraumatic, normocephalic. HEART: Christian. LUNGS: Decreased breath sounds, but clear. ABDOMEN: Soft, nontender. Positive bowel sounds. EXTREMITIES: No edema. LABORATORY DATA: She has labs. She has a 8.5 white count, 12.2 hemoglobin, 37.9 hematocrit with 290 platelets. INR is 1.06. 138 sodium, potassium 4.5, BUN 18, creatinine 0.8, GFR is greater than 60, sugar is 116, calcium is 9.2, total bili is 0.6, AST is 20, ALT is 23, alk phos 39, total protein 7.3, TSH is 3.69. Urine shows many bacteria. ASSESSMENT AND PLAN: She had a dose of Rocephin. Awaiting for Cardiology to see her to see if she just need a pacemaker with a 33 pulse. She has a third-degree heart block, a urinary tract infection without any symptoms and waiting to see what Cardiology wants to do about a pacemaker or not or just medications. Reymundo Oropeza DO
[2018-06-22] MEDS ORDERED: cefTRIAXone 1 gm 1 GM/100 ML BAG IVPB SCH ×2 (10:00)
[2018-06-22] MEDS ORDERED: Enoxaparin 40 mg Syringe SC SCH (10:00)
--- NOTE | 2018-06-22 11:26 | CARD ---
APPROVED REPORT Date of service: 06/21/2018 EKG Measurement Heart [id number] <Conclusion> Sinus Rythm with 2:1 Mobitz Type 2 Block. Incomplete right bundle branch block ST & T wave abnormality.
--- NOTE | 2018-06-22 11:33 | CARD ---
APPROVED REPORT Date of service: 06/21/2018 EKG Measurement Heart [id number] MI P72 [id number] <Conclusion> Complete Heart Block. Abnormal ECG
--- NOTE | 2018-06-22 15:15 | CARD ---
APPROVED REPORT Date of service: 06/22/2018 EKG Measurement Heart [id number] MD P57 [id number] <Conclusion> Sinus rhythm with complete heart block and junctional escape rhythm ST & T wave abnormality, consider inferior ischemia Abnormal ECG
--- NOTE | 2018-06-22 22:08 | CON ---
DATE: 06/22/2018 CARDIOLOGY CONSULTATION HISTORY: The patient is a 58-year-old woman, who presents with exertional fatigue. She was found to be in third-degree heart block in the emergency room. Hemodynamically, the patient was uncompromised with her heart rate in the 30s to 40s. The patient's past medical history is free of hypertension, no diabetes mellitus, no previous cardiac history. She denies previous myocardial infarction. She denies chest pain. She denies shortness of breath, but admits to fatigue. SOCIAL HISTORY: The patient does not smoke. A 14-point review of systems was reviewed in detail. No symptoms other than exertional fatigue. PHYSICAL EXAMINATION: VITAL SIGNS: Blood pressure is 150/65, the heart rate is in the 40s, currently in 2:1 heart block. NECK: Negative JVD. LUNGS: Without rales. HEART: S1, S2. EXTREMITIES: Without edema. EKG shows normal sinus rhythm with 2:1 Mobitz II heart block. LABORATORY DATA: Troponin is negative x1. BUN and creatinine are unremarkable. The hemoglobin is 12.2. IMPRESSION: 1. Third-degree heart block. 2. Mobitz II heart block. 3. Exertional fatigue. 4. Obesity. 5. Abnormal EKG. Given these findings, we will check the thyroid function test. We will obtain an echocardiogram. I have discussed with the patient about her need for a permanent pacemaker. The patient is not quite ready for consent for a pacemaker. We will continue to monitor on telemetry and review her echocardiogram from today. Jh Luna MD
[2018-06-23] MEDS ORDERED: Pantoprazole 40 mg EC Tab PO SCH (06:00)
[2018-06-23 06:08] LABS: MEAN CELL VOLUME 88.5 fl (80.0-105.0); MEAN CORPUSCULAR HEMOGLOBIN 29.4 pg (25.0-35.0); MEAN CORPUSCULAR HGB CONC 33.2 g/dl (31.0-37.0); MEAN PLATELET VOLUME 11.6 fl (7.0-11.0); RBC 4.94 10^6/uL (3.5-6.1); RED CELL DISTRIBUTION WIDTH 13.2 % (11.5-14.5); WHITE BLOOD COUNT 8.1 10^3/ul (4.5-11.0)
[2018-06-23 06:13] LABS: HEMOGLOBIN 14.5 g/dL (12.0-16.0)
[2018-06-23 06:14] LABS: ALB/GLOB RATIO 1.2 (1.1-1.8); ALBUMIN 4.2 g/dL (3.0-4.8); ALT/SGPT 21 U/L (7-56); AST/SGOT 18 U/L (14-36); BLOOD UREA NITROGEN 20 mg/dL (7-21); CALCIUM 9.2 mg/dL (8.4-10.5); GFR NON-AFRICAN AMERICAN > 60
[2018-06-23] MEDS ORDERED: Lidocaine 2% PF (10 ml) Amp ONE (07:34)
[2018-06-23] MEDS ORDERED: Midazolam 2 MG/2 ML VIAL ONE ×2 (07:51→08:21)
--- NOTE | 2018-06-23 08:05 | CP.CCUPN ---
<Jeison Dejesus - Last Filed: 06/23/18 10:23> CCU Subjective - Physician Review Subjective (Free Text): Jeison Dejesus DO, PGY-1 ICU Progress Note for Dr. Alicea Patient was seen and examined at bedside this AM after pacemaker placement. She states she has some pain with inspiration near the incision site but otherwise feels fine. CCU Objective - Vital Signs / Intake & Output Vital Signs (Last 4 hours): Vital Signs Pulse 06/23/18 06:00 31 L Intake and Output (Last 8hrs): Intake & Output 06/22/18 06/23/18 06/23/18 22:59 06:59 14:59 Intake Total 500 0 Output Total 520 1650 Balance -20 -1650 Weight 167 lb 6.4 oz Intake: Oral 500 0 Output: Urine 520 1650 Urine, Voided 520 1650 Other: # Voids Urine, Voided 4 # Bowel Movements 2 0 - Physical Exam Head: Positive for: Atraumatic, Normocephalic Pupils: Positive for: PERRL Extroacular Muscles: Positive for: EOMI Conjunctiva: Positive for: Normal Mouth: Positive for: Moist Mucous Membranes Neck: Positive for: Normal Range of Motion. Negative for: JVD Respiratory/Chest: Positive for: Clear to Auscultation. Negative for: Accessory Muscle Use, Wheezes, Rales, Rhonchi Cardiovascular: Positive for: Regular Rate and Rhythm (paced rhythm at 60 bpm), Normal S1, S2, Other (scar from pacemaker placement on left upper sternal border clean, dry, intact with minimal surrounding erythema). Negative for: Murmurs, Rub, Gallop Abdomen: Negative for: Tenderness, Distention, Guarding Back: Positive for: Normal Inspection Upper Extremity: Positive for: Normal Inspection. Negative for: Cyanosis Lower Extremity: Positive for: Normal Inspection. Negative for: Edema Neurological: Positive for: GCS=15, Speech Normal Skin: Positive for: Warm, Dry, Normal Color Psychiatric: Positive for: Alert, Oriented x 3, Normal Insight, Normal Concentration - Medications Active Medications: Active Medications Generic Name Dose Route Start Last Admin Trade Name Freq PRN Reason Stop Dose Admin Enoxaparin Sodium 40 mg 06/22/18 10:00 06/22/18 10:11 Lovenox SC 40 mg DAILY MARY Administration Protocol Ceftriaxone Sodium 1 gm in 100 mls @ 100 mls/hr 10/15/18 10:00 06/22/18 10:11 Rocephin 1 Gram Ivpb IVPB 100 mls/hr DAILY MARY Administration Protocol Pantoprazole Sodium 40 mg 06/23/18 06:00 06/23/18 05:25 Protonix Ec Tab PO Not Given 0600 MARY - Patient Studies Lab Studies: Microbiology Studies 06/21/18 15:17 Blood Culture - Preliminary Blood NO GROWTH AFTER 24 HOURS 06/21/18 14:47 Blood Culture - Preliminary Blood NO GROWTH AFTER 24 HOURS 06/21/18 14:47 Urine Culture - Final Urine No Growth (<1,000 CFU/ML) Lab Studies 06/23/18 06/23/18 Range/Units 05:18 05:18 WBC 8.1 (4.5-11.0) 10^3/ul RBC 4.94 (3.5-6.1) 10^6/uL Hgb 14.5 D (12.0-16.0) g/dL Hct 43.7 (36.0-48.0) % MCV 88.5 (80.0-105.0) fl MCH 29.4 (25.0-35.0) pg MCHC 33.2 (31.0-37.0) g/dl RDW 13.2 (11.5-14.5) % Plt Count 194 (120.0-450.0) 10^3/uL MPV 11.6 H (7.0-11.0) fl Sodium 140 (132-148) mmol/L Potassium 4.3 (3.6-5.0) mmol/L Chloride 107 (98-107) mmol/L Carbon Dioxide 23 (21-33) mmol/L Anion Gap 15 (10-20) BUN 20 (7-21) mg/dL Creatinine 0.7 (0.7-1.2) mg/dl Est GFR ( Amer) > 60 Est GFR (Non-Af Amer) > 60 Random Glucose 110 (70-110) mg/dL Calcium 9.2 (8.4-10.5) mg/dL Total Bilirubin 0.6 (0.2-1.3) mg/dL AST 18 (14-36) U/L ALT 21 (7-56) U/L Alkaline Phosphatase 38 (38-126) U/L Total Protein 7.7 (5.8-8.3) g/dL Albumin 4.2 (3.0-4.8) g/dL Globulin 3.5 gm/dL Albumin/Globulin Ratio 1.2 (1.1-1.8) Laboratory Results - last 24 hr 06/23/18 06/23/18 05:18 05:18 WBC 8.1 RBC 4.94 Hgb 14.5 D Hct 43.7 MCV 88.5 MCH 29.4 MCHC 33.2 RDW 13.2 Plt Count 194 MPV 11.6 H Sodium 140 Potassium 4.3 Chloride 107 Carbon Dioxide 23 Anion Gap 15 BUN 20 Creatinine 0.7 Est GFR ( Amer) > 60 Est GFR (Non-Af Amer) > 60 Random Glucose 110 Calcium 9.2 Total Bilirubin 0.6 AST 18 ALT 21 Alkaline Phosphatase 38 Total Protein 7.7 Albumin 4.2 Globulin 3.5 Albumin/Globulin Ratio 1.2 Fingerstick Blood Sugar Results: 89 Review of Systems - Gastrointestinal Gastrointestinal: absent: Abdominal Pain, Nausea, Vomiting Critical Care Progress Note - Nutrition Nutrition: Nutrition Category Date Time Status Keep patient NPO past midnight [NPO Diet] [DIET] Diets 06/22/18 Breakfast Ordered Assessment/Plan - Assessment and Plan (Free Text) Assessment: 58 yo F with no PMH presented to ED with worsening dyspnea on exertion found to have 3rd degree block with HR in 30s on admission admitted to ICU for close monitoring. She had intermittent Mobitz II block while in ICU yesterday. She is now s/p permanent pacemaker placement. Plan: Neuro: AAOx3, no FND, moving extremities past midline Cardio: Remains bradycardic at low 30s Had symptoms of dyspnea on exertion Echo with LVEF > 60% Stable to transfer to telemetry per Dr. Alvarado Pulm: No signs of respiratory distress. CTA B/L No dyspnea at rest only with exertion Maintain O2 saturation>95% O2 NC PRN GI: Tolerating HHD without nausea/vomiting Protonix for GI PPX /Nephro: BUN/Cr stable at 20/0.7 Monitor UOP Replete electrolytes as needed Maintain euvolemia Endocrinology: Maintain euglycemia Heme/Onc: H/H stable at 14.5/43.7 No signs of HD compromise Continue monitoring H/H ID: Afebrile, no leukocytosis Urine cx negative, rocephin for possible UTI discontinued DVT/GI PPX: Lovenox held per cardiology, SCDs, protonix Full Code Transfer to telemetry per Dr. Alvarado Case and plan reviewed and discussed with my attending Dr. Deanne Dejesus, DO IM Resident PGY-1 <Tramaine Alicea - Last Filed: 06/23/18 10:31> CCU Objective - Vital Signs / Intake & Output Intake and Output (Last 8hrs): Intake & Output 06/22/18 06/23/18 06/23/18 22:59 06:59 14:59 Intake Total 500 0 Output Total 520 1650 Balance -20 -1650 Weight 167 lb 6.4 oz Intake: Oral 500 0 Output: Urine 520 1650 Urine, Voided 520 1650 Other: # Voids Urine, Voided 4 # Bowel Movements 2 0 - Medications Active Medications: Active Medications Generic Name Dose Route Start Last Admin Trade Name Freq PRN Reason Stop Dose Admin Enoxaparin Sodium 40 mg 06/22/18 10:00 06/22/18 10:11 Lovenox SC 40 mg DAILY MARY Administration Protocol Sodium Chloride 1,000 mls @ 50 mls/hr 06/23/18 09:45 Sodium Chloride 0.9% IV 06/23/18 12:00 .Q20H MARY Pantoprazole Sodium 40 mg 06/23/18 06:00 06/23/18 05:25 Protonix Ec Tab PO Not Given 0600 MARY - Patient Studies Lab Studies: Microbiology Studies 06/21/18 15:17 Blood Culture - Preliminary Blood NO GROWTH AFTER 24 HOURS 06/21/18 14:47 Blood Culture - Preliminary Blood NO GROWTH AFTER 24 HOURS 06/21/18 14:47 Urine Culture - Final Urine No Growth (<1,000 CFU/ML) Lab Studies 06/23/18 06/23/18 Range/Units 05:18 05:18 WBC 8.1 (4.5-11.0) 10^3/ul RBC 4.94 (3.5-6.1) 10^6/uL Hgb 14.5 D (12.0-16.0) g/dL Hct 43.7 (36.0-48.0) % MCV 88.5 (80.0-105.0) fl MCH 29.4 (25.0-35.0) pg MCHC 33.2 (31.0-37.0) g/dl RDW 13.2 (11.5-14.5) % Plt Count 194 (120.0-450.0) 10^3/uL MPV 11.6 H (7.0-11.0) fl Sodium 140 (132-148) mmol/L Potassium 4.3 (3.6-5.0) mmol/L Chloride 107 (98-107) mmol/L Carbon Dioxide 23 (21-33) mmol/L Anion Gap 15 (10-20) BUN 20 (7-21) mg/dL Creatinine 0.7 (0.7-1.2) mg/dl Est GFR ( Amer) > 60 Est GFR (Non-Af Amer) > 60 Random Glucose 110 (70-110) mg/dL Calcium 9.2 (8.4-10.5) mg/dL Total Bilirubin 0.6 (0.2-1.3) mg/dL AST 18 (14-36) U/L ALT 21 (7-56) U/L Alkaline Phosphatase 38 (38-126) U/L Total Protein 7.7 (5.8-8.3) g/dL Albumin 4.2 (3.0-4.8) g/dL Globulin 3.5 gm/dL Albumin/Globulin Ratio 1.2 (1.1-1.8) Laboratory Results - last 24 hr 06/23/18 06/23/18 05:18 05:18 WBC 8.1 RBC 4.94 Hgb 14.5 D Hct 43.7 MCV 88.5 MCH 29.4 MCHC 33.2 RDW 13.2 Plt Count 194 MPV 11.6 H Sodium 140 Potassium 4.3 Chloride 107 Carbon Dioxide 23 Anion Gap 15 BUN 20 Creatinine 0.7 Est GFR ( Amer) > 60 Est GFR (Non-Af Amer) > 60 Random Glucose 110 Calcium 9.2 Total Bilirubin 0.6 AST 18 ALT 21 Alkaline Phosphatase 38 Total Protein 7.7 Albumin 4.2 Globulin 3.5 Albumin/Globulin Ratio 1.2 EKG/Cardiology Studies: Cardiology / EKG Studies 06/23/18 09:26 ELECTROCARDIOGRAM Stat Comment: Reason For Exam: S/p PPM PRE OP:: N Does Patient Have a Pacemaker?: Yes PERFORMING PHYSICIAN/PROVIDER:: Christiano,Mohammad Critical Care Progress Note - Nutrition Nutrition: Nutrition Category Date Time Status Keep patient NPO past midnight [NPO Diet] [DIET] Diets 06/22/18 Breakfast Ordered Assessment/Plan - Assessment and Plan (Free Text) Plan: Patient seen and examined on rounds, agree with note with following additions/exceptions: Patient is 58yo female without sig PMHx, presents from home with SOB, and compl ete HB. Cardiology consulted. Patient is also has UTI on Rocephin. Patient s/p PPM placement today UTI Bradycardia Complete heart block Recommend: - supp o2 as needed, duonebs PRN - Rocephin IV - BP control - IVF - cardiology follow up - GI ppx - DVT ppx - transfer to telemetry, stable
--- NOTE | 2018-06-23 08:16 | PN ---
DATE: 06/23/2018 SUBJECTIVE: She is in the Intensive Care Unit. She is resting comfortably in bed. She is finally agreed that was told by the nurses that she will have a permanent pacemaker today. Right now, the pulse is 32. PHYSICAL EXAMINATION: VITAL SIGNS: She has a 97.3 temp, pulse of 32, 133/62 blood pressure, 99% O2 sat. HEENT: Head is atraumatic, normocephalic. HEART: Christian but regular. LUNGS: Clear to auscultation. ABDOMEN: Soft, obese, nontender. EXTREMITIES: No edema. LABORATORY DATA: She has 8.1 white count, 14.5 hemoglobin, 43.7 hematocrit, 494, platelets. She has a 140 sodium, potassium 4.3, BUN 20, creatinine 0.7, GFR is greater than 60, sugar is 110, calcium is 9.2, total bili is 0.6, AST is 18, ALT is 21, alk phos 38, total protein 7.7. ASSESSMENT AND PLAN: She has urinary tract infection, on Rocephin. The plan is for permanent pacemaker today. Family get the okay. We will discharge her as per Cardiology. She has third-degree heart block. Reymundo Oropeza DO
[2018-06-23] MEDS ORDERED: Sodium Chloride 0.9% 1,000 ML IV SCH (09:45)
--- NOTE | 2018-06-23 09:46 | CARD ---
APPROVED REPORT Date of service: 06/23/2018 HISTORY The Patient is a 58 year-old female with a history of No significant Medical condition, Admitted with High Grade AV Block and ventricular escape heart rate 30's. PROCEDURES Insertion Dual Chamber Pacemaker INDICATIONS SSS High grade AV block Bradycardia CONSCIOUS SEDATION AGENTS Versed Fentanyl IMPLANTED DEVICES Atrial Lead..... [id number] cm MRI Safe Ventricular Lead.....Medtronic 5076 - 58 cm MRI safe Pulse generator......Medtronic, JOLYNN XT DR ARIEL medina OPERATIVE NOTE The patient was brought to the Cardiac Catheterization Laboratory in a fasting state and was prepped and draped in a sterile manner. The left subclavian region was infiltrated with 2% Lidocaine, subcutaneous anesthesia. A transverse incision was made in the left upper chest cavity. The subcutaneous pocket was formed via blunt dissection. Percutaneous venous access was achieved and an introducer sheath was inserted into the Lt Subclavian vein. Through the introducer sheaths, the atrial and ventricular lead wires were positioned in the right atrial apppendage and right ventricular apex respectively, utilizing fluorscopic guidance. The atrial and ventricular leads were advanced over the wires under fluoroscopic guidance and positioned in the right atria and right ventricle respectively. Capturing and sensing thresholds were verified. THE ATRIAL ELECTRODE PARAMETERS P WAVE 4.7 THRESHOLD0.5 RESISTANCE 903 THE VENTRICULAR ELECTRODE PARAMETERS R WAVE 13.8 THRESHOLD0.5 RESISTANCE 927 The atrial and ventricular leads were then secured using Silk 0 sutures. The subcutaneous pocket was irrigated with Betadine.The atrial and ventricular leads were attached to the appropriate receptacles on the pulse generator and set screws firmly tightened to insure adequate contact and stability. The leads and pulse generator were placed into the subcutaneous pocket. Sharp and sponge counts were confirmed to be correct. At this time the pocket was closed subcutaneously with a Vicryl 2.0 and the skin was closed with a Vicryl 4.00 .The operative site was dressed in sterile fashion. The patient tolerated the procedure well and was transferred tothe floor in stable condition. COMPLICATIONS The patient tolerated the procedure well and there were no complications associated with the procedure. CONCLUSION Successful Implantation of Dual Chamber Pacemaker, Medtronic MRI Safe ( JOLYNN XT MRI). Arrangement has been made for F/u in pacemaker clinic with Dr. Luna. CC; Drs. Luna / Sandip H
--- NOTE | 2018-06-23 09:49 | CPOSTOP ---
DATE: 06/23/2018 CARDIOVASCULAR LAB POST PROCEDURE NOTE DICTATING PHYSICIAN: Gurvinder Alvarado MD [employer] ANALYST: Cornelius Moctezuma RN. TYPE OF ANESTHESIA: Moderate conscious sedation, total 2 mg of Versed, 100 of fentanyl given periodically. Started 1 mg of Versed, 50 of fentanyl. PRE-PROCEDURE DIAGNOSES: Heart block, high-grade atrioventricular block. PROCEDURE PERFORMED: Implantation of permanent pacemaker, dual chamber, MRI safe, Medtronic. FINDINGS: Complete heart block and high-grade AV block. Occasional Mobitz type 2 block. FINAL DIAGNOSIS: Heart block. POST PROCEDURE CONDITION: Post procedure, the patient's condition is stable. VASCULAR ACCESS SITE: Left subclavian vein. CLOSURE DEVICE: Suture applied and Dermabond applied. TOTAL RADIATION DOSE: 1944.77. TOTAL FLUORO TIME: 4.7 minutes. Gurvinder Alvarado MD (Delete this signature block when dictator is a preceptor.) cc: MD Cristina (Delete if not dictated.)
--- NOTE | 2018-06-23 10:34 | RAD ---
Date of service: 06/23/2018 HISTORY: Post Pacemaker ,r/o pneumothorax COMPARISON: 06/21/2018 FINDINGS: LUNGS: The lungs are well inflated and clear. PLEURA: No pleural effusions or pneumothorax. CARDIOVASCULAR: The heart remains enlarged. There is interval placement of a left-sided dual lead permanent pacing device with leads terminating in the right atrium and right ventricle. No aortic atherosclerotic calcification present. OSSEOUS STRUCTURES: Within normal limits for the patient's age. VISUALIZED UPPER ABDOMEN: Normal. OTHER FINDINGS: None. IMPRESSION: Interval placement of left-sided dual lead permanent pacing device with leads terminating in the right atrium and right ventricle. No acute findings.
--- NOTE | 2018-06-23 15:50 | CARD ---
APPROVED REPORT Date of service: 06/23/2018 EKG Measurement Heart [id number] <Conclusion> AV sequential or dual chamber electronic pacemaker
--- NOTE | 2018-06-23 15:52 | CARD ---
APPROVED REPORT Date of service: 06/22/2018 EXAM: Two-dimensional and M-mode echocardiogram with Doppler and color Doppler. INDICATION BRADYCARDIA/HEART BLOCK 2D DIMENSIONS Left Atrium (2D)3.0 (1.6-4.0cm)IVSd1.1 (0.7-1.1cm) LVDd5.1 (3.9-5.9cm)PWd1.0 (0.7-1.1cm) LVDs3.3 (2.5-4.0cm)FS (%) 34.8 % LVEF (%)63.7 (>50%) M-Mode DIMENSIONS Aortic Root2.40 (2.2-3.7cm)Aortic Cusp Exc.1.60 (1.5-2.0cm) Aortic Valve AoV Peak Koyhmfel735.0cm/Suzan Peak GR.18mmHg Mitral Valve E/A ratio0.0 TDI E/Lateral E'0.0E/Medial E'0.0 Tricuspid Valve TR Peak [id number]/sRAP [id number] Peak Gr.14mmHg [id number] LEFT VENTRICLE There is mild concentric left ventricular hypertrophy. The left ventricular function is normal. The left ventricular ejection fraction is within the normal range. RIGHT VENTRICLE The right ventricle is normal size. ATRIA The left atrium is mildly dilated. The right atrium size is normal. AORTIC VALVE The aortic valve is thickened but opens well. MITRAL VALVE The mitral valve is thickened but opens well. Mitral regurgitation is trace to mild. TRICUSPID VALVE The tricuspid valve leaflets are thickened , but open well. There is trace tricuspid regurgitation. There is no pulmonary hypertension. PULMONIC VALVE The pulmonic valve is not well visualized. PERICARDIAL EFFUSION There is no pericardial effusion. There is no pericardial effusion. <Conclusion> LVH with good LV systolic function Dilated LA Mild MR and TR No pulmonary hypertension
[2018-06-23 16:15] VITALS: TEMP 98
--- NOTE | 2018-06-23 16:22 | PN ---
DATE: 06/23/2018 CARDIOLOGY FOLLOWUP SUBJECTIVE: The patient is asymptomatic post pacemaker placement this morning. PHYSICAL EXAMINATION: VITAL SIGNS: Blood pressure is 132/78, the heart rate is paced in the 60s. NECK: Negative JVD. LUNGS: Without rales. HEART: Reveals S1, S2. EXTREMITIES: Without edema. SKIN: The pacemaker site placement is stable. LABORATORY DATA: Hemoglobin is 14.5. Chemistries: BUN and creatinine are unremarkable. IMPRESSION: 1. Status post third-degree heart block. 2. Successful pacemaker placement by Dr. Alvarado. 3. Obesity. 4. Borderline diabetes mellitus. PLAN: Given these findings, we will transfer the patient to telemetry today. We will need to ambulate. If the patient is stable, the patient can go home in the morning. Jh Luna MD
--- NOTE | 2018-06-24 09:21 | PN ---
DATE: 06/24/2018 SUBJECTIVE: The patient is ambulating without symptoms. PHYSICAL EXAMINATION: VITAL SIGNS: Heart rate is paced. Blood pressure is 152/83. NECK: Negative JVD. LUNGS: Without rales. HEART: S1, S2. EXTREMITIES: Without edema. LABORATORY DATA: Stable. Hemoglobin is 14.5. BUN and creatinine unremarkable. Chest x-ray shows pacemaker lead with no pneumothorax. IMPRESSION: 1. Status post third-degree heart block. 2. Status post percutaneous transluminal coronary angioplasty and stent placement. 3. Hypertension. 4. Obesity. 5. Borderline diabetes mellitus. Given these findings, the patient is ambulating without symptoms. The patient will be discharged today. We will follow with an outpatient stress test. I have discussed with the patient about the need for cardiac risk reduction program. Jh Luna MD
--- NOTE | 2018-06-24 13:05 | RAD ---
Date of service: 06/24/2018 HISTORY: S/p PPM R/o pneumothorax COMPARISON: June 23, 2018 TECHNIQUE: Chest PA and lateral FINDINGS: LUNGS: No active pulmonary disease. PLEURA: No significant pleural effusion identified. No pneumothorax apparent. CARDIOVASCULAR: No radiographic findings to suggest acute or significant cardiovascular disease. Position/ configuration of pacemaker device: Satisfactory. OSSEOUS STRUCTURES: No significant abnormalities. VISUALIZED UPPER ABDOMEN: Normal. OTHER FINDINGS: None. IMPRESSION: No active disease. No significant interval change compared to the prior examination(s).
[2018-06-24 13:35] VITALS: PULSE 72
[2018-06-24 14:57] VITALS: BP 152/83; RESP 20; O2SAT 98
--- NOTE | 2018-06-25 04:39 | DS ---
HISTORY OF PRESENT ILLNESS: She had her pacemaker placed yesterday. She is doing much better today and the heart rate is in the 70. She is comfortable. No chest pain or shortness of breath. No abdominal pain. Good spirits. PHYSICAL EXAMINATION: She has a 98 temperature, 67 pulse, 133/78 blood pressure, 16 respiratory rate and 99% O2 sat on room air. Head is atraumatic and normocephalic. Heart has regular rate. Lungs decreased breath sounds. Abdomen is soft. Extremities with no edema. IMPRESSION AND PLAN: She is going to go home on the pantoprazole that is what she takes. There is no growth in the cultures. She was seen by cardiology. She can be discharged. Follow up as an outpatient with the primary care doctor and her pacemaker doctor. A third degree heart block . Reymundo Oropeza DO MTDD
== END 2018-06-24 15:40 | disposition home or self-care (01) | DRG 116 ==
LOC: ED 14:24 → ERH 16:25 → CCU 20:55
PROVIDERS: ADMIT Family Medicine; ATTEND Family Medicine
PROC: 0JH606Z Insertion of Pacemaker, Dual Chamber into Chest Subcutaneous Tissue and Fascia, Open Approach (ICD-10-PCS; principal; 2018-06-23)
PROC: 02H63JZ Insertion of Pacemaker Lead into Right Atrium, Percutaneous Approach (ICD-10-PCS; 2018-06-23)
PROC: 02HK3JZ Insertion of Pacemaker Lead into Right Ventricle, Percutaneous Approach (ICD-10-PCS; 2018-06-23)
DX: I44.2 Atrioventricular block, complete (principal); N39.0 Urinary tract infection, site not specified; E66.9 Obesity, unspecified; Z68.36 Body mass index [BMI] 36.0-36.9, adult; R73.03 Prediabetes; I10 Essential (primary) hypertension; Z95.5 Presence of coronary angioplasty implant and graft